=== PATIENT | female | born 1970 | race Caucasian/White ===

== ENCOUNTER 2018-08-14 04:55 | Emergency (ER) | payer MEDICAID ==
[2018-08-14 05:17] VITALS: BP 114/80; PULSE 72; RESP 20; TEMP 98.1; O2SAT 97
--- NOTE | 2018-08-14 06:15 | C.PDOC ---
History Of Present Illness 48-year-old female presents to the emergency department with multiple complaints. c.o right middle finger pain that occurred while taking care of her mother in the ICU. Patient complains of intermittent headache, (none at present) which is recently more frequent over the last year when she put her hair into a ponytail. pt sts she has rx for a brain mri from [facility], but hasn't had time to go for test. no headache at present. Patient also reports 5 to 6 months of intermittent left thoracic pain. Patient also complains of nodules on her knuckles that come and go for the last three years, had them biopsied by financial advisor several yests ago but never got results. Time Seen by Provider: 08/14/18 05:38 Chief Complaint (Nursing): Upper Extremity Problem/Injury History Per: Patient History/Exam Limitations: no limitations Onset/Duration Of Symptoms: Hrs Current Symptoms Are (Timing): Still Present Quality: "Pain" Past Medical History Reviewed: Historical Data, Nursing Documentation, Vital Signs Vital Signs: Last Vital Signs Temp 98.1 F 08/14/18 05:11 Pulse 72 08/14/18 05:11 Resp 20 08/14/18 05:11 BP 114/80 08/14/18 05:11 Pulse Ox 97 08/14/18 05:11 - Medical History PMH: Asthma Surgical History: No Surg Hx Family History: States: No Known Family Hx - Social History Hx Tobacco Use: No Hx Alcohol Use: No Hx Substance Use: No - Immunization History Hx Tetanus Toxoid Vaccination: No Hx Influenza Vaccination: No Hx Pneumococcal Vaccination: No Review Of Systems Constitutional: Negative for: Fever, Chills Cardiovascular: Negative for: Chest Pain Respiratory: Negative for: Cough, Shortness of Breath Musculoskeletal: Positive for: Back Pain (left thoracic), Hand Pain (right) Skin: Positive for: Rash (knuckles of both hands) Neurological: Positive for: Headache Physical Exam - Physical Exam Appears: Non-toxic, No Acute Distress Skin: Normal Color, Warm, Dry, Rash (multiple non tender fleshy colored papules about 2-3 mm on knuckles 2-5 on both hands. ) Head: Atraumatic, Normacephalic Eye(s): bilateral: Normal Inspection, PERRL, EOMI Oral Mucosa: Moist Neck: Normal, No Midline Cervical Tenderness, No Paracervical Tenderness, Supple Chest: Symmetrical, No Tenderness Cardiovascular: Rhythm Regular, No Murmur Respiratory: Normal Breath Sounds, No Rales, No Rhonchi, No Wheezing Gastrointestinal/Abdominal: Soft, No Tenderness Back: Muscle Spasm (left-sided thoracic area), Paraspinal Tenderness (left thoracic spasm ) Extremity: Tenderness (to right third finger), Swelling (swelling to the proximal phalanx right third finger) Pulses: Right Brachial: Normal Neurological/Psych: Oriented x3, Normal Speech, Normal Cognition, Normal Motor, Normal Sensation ED Course And Treatment O2 Sat by Pulse Oximetry: 97 (RA) Pulse Ox Interpretation: Normal Medical Decision Making Medical Decision Making: Plan: Lidocaine Patch Motrin 600mg PO Tylenol 975mg PO XR Right Hand Patient states that she has lidocaine patch and muscle relaxers at home, and declines more, sts she doesnt't take them. doesn't like medicine . discussed with pt that i won't do head ct, will not rule out everything in brain that an mri would and no need for increased exposure to radiation. Disposition Counseled Patient/Family Regarding: Studies Performed, Diagnosis, Need For Fo llowup, Rx Given - Disposition Referrals: Enmanuel Haas MD [Staff Provider] - Disposition: HOME/ ROUTINE Disposition Time: 07:14 Condition: GOOD Additional Instructions: Please take Tylenol 1000 mg by mouth two times a day. Continue to take gabapentin as prescribed. Can take ibuprofen 600 mg by mouth (every 6 hours) with food. Remove patch in 12 hours. Recommend you get TENS machine and use on left side back for 5-10 minutes at a times 2 times a day. Cold or warm compresses to back and cold compresses to right middle finger. Go for mri brain as scheduled. Follow up with dermatology for rash on hand. Prescriptions: Acetaminophen [Tylenol Extra Strength] 1,000 mg PO BID #100 tablet Cyclobenzaprine [Cyclobenzaprine HCl] 10 mg PO Q8 #9 tab Ibuprofen [Motrin] 600 mg PO TID #30 tab Instructions: Muscle Strain (DC), Contusion (DC) Forms: [facility] (American), General Discharge Instructions - Clinical Impression Clinical Impression: Contusion of finger of right hand, Thoracic back sprain - PA / [employer] / Resident Statement MD/DO has reviewed & agrees with the documentation as recorded. - Scribe Statement The provider has reviewed the documentation as recorded by the Scribe (Jamaal Caldwell) All medical record entries made by the Scribe were at my direction and personally dictated by me. I have reviewed the chart and agree that the record accurately reflects my personal performance of the history, physical exam, medical decision making, and the department course for this patient. I have also personally directed, reviewed, and agree with the discharge instructions and disposition.
[2018-08-14] MEDS ORDERED: Lidocaine 5% Patch TD STA (06:16)
[2018-08-14] MEDS ORDERED: Lidocaine 5% Patch TD ONE (06:36)
--- NOTE | 2018-08-14 11:06 | RAD ---
Right hand 3rd digit three views History: Pain. Comparison: None available. Findings: Soft tissue swelling at the level of the 3rd digit. No evidence of acute displaced fracture or dislocation. Impression: Soft tissue swelling. If pain persists, consider correlation with MRI.
== END 2018-08-14 07:55 | disposition home or self-care (01) ==
LOC: C.ER 04:55
DX: S60.031A Contusion of right middle finger without damage to nail, initial encounter (principal); S23.3XXA Sprain of ligaments of thoracic spine, initial encounter; X58.XXXA Exposure to other specified factors, initial encounter